=== PATIENT | female | born 1995 | race Caucasian/White ===

== ENCOUNTER → 2017-12-01 14:56 | Outpatient (CLI) | payer OTHER, MEDICAID, SELFPAY ==
[2017-12-01 15:30] LABS: Add Manual Diff / Slide Review NO; Basophils Percent Auto 0.4 % (0-2); Eosinophils Percent Auto 1.4 % (2-4); Hematocrit 32.9 % (36-46); Hemoglobin 11.4 g/dL (12.0-16.0); Lymphocytes Percent Auto 21.9 % (25-40); Mean Corpuscular HGB Conc 34.5 % (30-36); Mean Corpuscular Hemoglobin 31.4 PG (26-34); Monocytes Percent Auto 4.8 % (3-14); Neutrophils Absolute Auto 5100 /uL (3000-5900); Neutrophils Percent Auto 71.5 % (50-75); Platelet Count 260 X10^3/uL (150-400); Red Blood Cell Count 3.62 X10^6/uL (4.0-5.2); Red Cell Distribution Width 11.7 % (11.6-14.8); White Blood Cell Count 7.1 X10^3/uL (4.5-11.0)
[2017-12-01 16:17] LABS: Appearance Urine UA CLEAR; Bilirubin Urine UA NEGATIVE (NEGATIVE); Color Urine UA YELLOW; Glucose Urine UA NEGATIVE (Negative); Ketones Urine UA NEGATIVE (NEGATIVE); Leukocyte Esterase Urine UA NEGATIVE (NEGATIVE); Nitrite Urine UA NEGATIVE (NEGATIVE); Occult Blood Urine UA NEGATIVE (Negative); Protein Urine UA NEGATIVE (Negative); Specific Gravity Urine UA 1.015 (1.000-1.035); Urobilinogen Urine UA 0.2 E.U./dL (0.2); pH Urine UA 7.5 (4.5-8.0)
[2017-12-01 16:20] LABS: Amorphous Sediment Urine 1+; Squamous Epithelial Cell Urine 0-1 /HPF; WBC Urine 0-1/HPF (0-5/HPF)
[2017-12-01 17:14] LABS: HIV 1 and 2 Antibody NEGATIVE (NEGATIVE); Hep C Virus Ab w/Reflex Quant NEGATIVE s/c (NEGATIVE); Hepatitis B Surface Antigen NEGATIVE s/c (NEGATIVE); Rubella Antibody IgG 33.7 IU/mL (>15)
[2017-12-03 14:41] LABS: HSV 2 IGG AB < 0.90 index (< 0.90); HSV1IGG < 0.90 index (< 0.90)
[2017-12-09 09:57] LABS: Rapid Plasma Reagin Non-Reactive
== END ==
PROVIDERS: PCP Family Medicine; Visit Provider Family Medicine
DX: Z34.91 Encounter for supervision of normal pregnancy, unspecified, first trimester (principal)
CPT/HCPCS: 36415; 80055; 86787; 86850; 86900; 86901; 87086

== ENCOUNTER → 2017-12-04 12:39 | Outpatient (CLI) | payer OTHER, MEDICAID, SELFPAY ==
[2017-12-06 03:59] LABS: Urine N gonorrhoeae NOT DETECTED
[2017-12-06 04:03] LABS: Urine Chlamydia NOT DETECTED
== END ==
PROVIDERS: PCP Family Medicine; Visit Provider Family Medicine
DX: Z34.90 Encounter for supervision of normal pregnancy, unspecified, unspecified trimester (principal)
CPT/HCPCS: 87491; 87591

== ENCOUNTER → 2018-01-29 14:44 | Outpatient (CLI) | payer OTHER, MEDICAID, SELFPAY ==
[2018-02-10 10:07] LABS: AFP, Serum 43.5 ng/mL; Calc Gestational Age 18.6; Cigarette Smoker N; Donated Egg NOT GIVEN; Donor Egg Age NOT GIVEN; Estriol, Free 1.14 ng/mL; Inhibin A, Dimeric 309 pg/mL; Maternal Weight 128 lbs; Number of Fetuses 1; Previous Pregnancy Down Syndro NOT GIVEN; hCG, MoM 1.77; hCG, Serum 43.7 IU/mL
== END ==
PROVIDERS: PCP Family Medicine; Visit Provider Family Medicine
DX: Z34.90 Encounter for supervision of normal pregnancy, unspecified, unspecified trimester (principal)
CPT/HCPCS: 36415; 82105; 82677; 84702; 86336

== ENCOUNTER → 2018-02-11 10:20 | Outpatient (CLI) | payer OTHER, MEDICAID, SELFPAY ==
--- NOTE | 2018-02-11 10:22 | DI.US.S_ITS ---
PROCEDURE: US OB >= 14 WEEKS FETUS INDICATIONS: ANATOMY OUTSIDE/PRIOR DATING DATA: Last menstrual period (LMP): 09/21/17. LMP-based estimated date of delivery (SILVESTRE): 06/28/18. First dating scan (date and location): 02/11/18. Estimated date of delivery (SILVESTRE) from first dating scan: 06/29/18. TECHNIQUE: Real-time scanning was performed of the fetus, with image documentation and biometric measurements. Endovaginal scanning: No COMPARISON: None. FINDINGS: General: A single living intrauterine gestation is present. Presentation: Breech. Placenta: Placental position is posterior, without previa. Amniotic fluid index: 15.7 cm, normal range is 5-24 cm. heart rate: 139 beats per minute. Maternal cervical canal: 3.2 cm long. Normal lower limit is 2.5 cm. biometrics: Biparietal diameter: 20 weeks 4 days Head circumference: 20 weeks 0 days Abdominal circumference: 20 weeks 3 days Femur length: 20 weeks 0 days Estimated gestational age from initial scan: not applicable. Composite gestational age from present scan: 20 weeks 2 days Estimated weight and percentile: 339 g; 33rd percentile Measurement variability for biometric dating: +/- 7 days from 14 weeks to 15 weeks 6 days gestation, +/- 10 days from 16 weeks to 21 weeks 6 days gestation, +/- 2 weeks from 22 weeks to 27 weeks 6 days gestation, +/- 3 weeks for 28 weeks gestation or later. weight reference: 4500 g or EFW >90/95% is considered macrosomia or large for gestational age. EFW <10% is small for gestational age. EFW 5% or less is considered intra-uterine growth restriction. Anatomic survey: Neuro: Ventricles are non-dilated at less than 10 mm. Cisterna magna is normal at 3-11 mm. Cerebellum is normal in size and morphology. Nuchal skin fold: Normal at less than 6 mm between 14-21 weeks gestational age. Face: Nose and lips, facial profile are normal. Spine: No evidence for spina bifida. Heart: 4-chambered heart is present, with normal ventricular outflow tracts. Diaphragm: Diaphragm is intact. Stomach: Left-sided stomach is present. Kidneys: No hydronephrosis. Normal is less than 5 mm in 2nd trimester, less than 7 mm in 3rd trimester. Cord: 3-vessel cord has orthotopic insertion. Bladder: Normal in size. Extremities: All 4 extremities identified. IMPRESSION: 1. Single living IUP present with composite gestational age of 20 weeks 2 days. 2. Normal anatomic survey. Dictated by: Ismael PRICE Interpreted: Michelle Martin MD on 02/11/2018 at 11:16 Approved by: Michelle Martin M.D. on 02/11/2018 at 11:55
== END ==
PROVIDERS: PCP Family Medicine; Visit Provider Family Medicine
DX: Z34.02 Encounter for supervision of normal first pregnancy, second trimester (principal); Z3A.20 20 weeks gestation of pregnancy
CPT/HCPCS: 76811

== ENCOUNTER → 2018-05-24 09:55 | Outpatient (CLI) | payer OTHER, MEDICAID, SELFPAY ==
[2018-05-24 11:27] LABS: Add Manual Diff / Slide Review NO; Basophils Percent Auto 0.3 % (0-2); Eosinophils Percent Auto 1.2 % (2-4); Hematocrit 31.7 % (36-46); Hemoglobin 11.4 g/dL (12.0-16.0); Lymphocytes Percent Auto 21.9 % (25-40); Mean Corpuscular HGB Conc 35.8 % (30-36); Mean Corpuscular Volume 92.1 fL (80-100); Monocytes Percent Auto 6.1 % (3-14); Neutrophils Absolute Auto 6200 /uL (3000-5900); Neutrophils Percent Auto 70.5 % (50-75); Platelet Count 215 X10^3/uL (150-400); Red Blood Cell Count 3.44 X10^6/uL (4.0-5.2); Red Cell Distribution Width 12.3 % (11.6-14.8); White Blood Cell Count 8.8 X10^3/uL (4.5-11.0)
[2018-05-24 11:35] LABS: GTT (PREG) 1 Hour PP 50gm Dose 100 mg/dL (76-139)
== END ==
PROVIDERS: PCP Family Medicine; Visit Provider Family Medicine
DX: Z34.92 Encounter for supervision of normal pregnancy, unspecified, second trimester (principal)
CPT/HCPCS: 36415; 82950; 85025

== ENCOUNTER → 2018-06-02 16:30 | Outpatient (CLI) | payer OTHER, MEDICAID, SELFPAY ==
[2018-06-03 14:49] LABS: Strep Grp B PCR POS for Grp B Strep
== END ==
PROVIDERS: PCP Family Medicine; Visit Provider Family Medicine
DX: Z34.83 Encounter for supervision of other normal pregnancy, third trimester (principal)
CPT/HCPCS: 87186; 87653

== ENCOUNTER 2018-07-05 12:08 | Outpatient (CLI) | payer OTHER, MEDICAID, SELFPAY | END 2018-07-05 12:54 | disposition home or self-care (01) | LOC: OB 07-07 13:13 | PROVIDERS: PCP Family Medicine; Visit Provider Family Medicine | DX: O48.0 Post-term pregnancy (principal); Z3A.41 41 weeks gestation of pregnancy | CPT/HCPCS: 59025; G0378; G0379 ==

== ENCOUNTER 2018-07-07 19:02 | Inpatient (IN) | payer OTHER, MEDICAID, SELFPAY ==
--- NOTE | 2018-07-07 19:19 | PM.OBHP.1 ---
OB HPI Date/Time Date of admission: 07/07/18 Date Patient Seen: 07/07/18 Time Patient Seen: 19:55 History of Present Condition Chief complaint: EVAL OF LABOR : 1 Para: 0 Estimated Date of Delivery: 06/28/18 Estimated Gestational Age (weeks): 41 Narrative: Daniela Olivares is a 23 year old female at 41 weeks 2 days here for postdates induction Indications Indication for induction OB: post dates Other reason(s) for admission: Postdates induction History of Present care: initiated at week # (10), number of visits (12) and pounds weight gain (39) Dating criteria: LMP confirmed by 1st trimester US Ultrasounds: normal mid trimester US Obstetrical complications: none Medical complications: none Preadmission Labs Blood type: O (+) positive -: Antibody screen: negative, GBS status: positive, HBsAG: negative, HIV: negative and RPR/VDLR: negative -: Chlamydia screen: not detected and Gonorrhea screen: not detected -: Rubella: immune and Varicella: immune Quad screen: Normal 1 hr GTT: 100 Evaluation Evaluation Baseline heart rate: 120 Variability: Moderate (11-25) monitor accelerations: Present monitor decelerations: Absent Category of Tracing: I Cervical dilation (cm): 1 Cervical effacement (%): 50 station: -1 Meds Home Medications Medication Instructions Recorded Confirmed Type norethindrone-e.estradiol-iron 1 tab PO QDAY #3 pac 04/07/16 Rx [Loestrin Fe 1.5/30 (28-Day)] Allergies Allergy/AdvReac Type Severity Reaction Status Date / Time amoxicillin [AMOXICILLIN] Allergy Severe HIVES Unverified 10/21/17 12:11 Penicillins [PENICILLINS] Allergy Severe HIVES Unverified 10/21/17 12:11 Review of Systems Review of Systems Patient denies signs and symptoms of preeclampsia. She denies leakage of fluid. Good movement. All systems reviewed & are unremarkable except as noted in HPI and below Exam Vital Signs (past 8 hours): Blood pressure 133/94, pulse 96, temperature 97.1? Narrative Exam Narrative: HEENT exam within normal limits. Lungs are clear to auscultation and percussion. Heart is regular rate and rhythm no S3-S4 or murmurs. Abdomen is gravid and nontender. Extremities without edema and nontender. Assessment and Plan (1) 41 weeks gestation of : Current visit: Yes Status: Acute Plan: Plan: 41 week 2 day gestation here for postdates induction. Patient will be given Cytotec and Pitocin in a.m. if not in active labor.
[2018-07-07] MEDS: miSOPROStol 25 MCG TABLET VAG (20:05)
[2018-07-07] MEDS: LACTATED RINGERS 1,000 ML 999 ML IV (21:45)
[2018-07-07 21:53] LABS: Add Manual Diff / Slide Review NO; Basophils Percent Auto 0.1 % (0-2); Eosinophils Percent Auto 0.8 % (2-4); Hematocrit 33.4 % (36-46); Hemoglobin 11.9 g/dL (12.0-16.0); Lymphocytes Percent Auto 23.2 % (25-40); Mean Corpuscular HGB Conc 35.7 % (30-36); Mean Corpuscular Hemoglobin 33.6 PG (26-34); Mean Corpuscular Volume 94.4 fL (80-100); Monocytes Percent Auto 4.9 % (3-14); Neutrophils Absolute Auto 7100 /uL (1500-7000); Platelet Count 215 X10^3/uL (150-400); Red Blood Cell Count 3.54 X10^6/uL (4.0-5.2); Red Cell Distribution Width 13.8 % (11.6-14.8)
[2018-07-07] MEDS: DEXTROSE 5%-LACTATED RINGERS 1,000 ML 100 ML IV (22:43)
[2018-07-07] MEDS: CLINDAMYCIN 900 MG/50 ML PIGGYBACK 50 MG IV (23:40)
[2018-07-07] MEDS: LACTATED RINGERS 1,000 ML 100 ML IV (23:41)
[2018-07-08 04:16] VITALS: BP 133/90
[2018-07-08] MEDS: LACTATED RINGERS 1,000 ML 100 ML IV (07:04)
[2018-07-08] MEDS: CLINDAMYCIN 900 MG/50 ML PIGGYBACK 50 MG IV (07:05)
--- NOTE | 2018-07-08 10:34 | PM.OBPRVD ---
Delivery date: 07/08/18 Intrapartal events: None Induction method: per misoprostol protocol Delivery augmentation: rupture of membranes Delivery monitor: external FHT Route of delivery: Laceration description: Perineal - 1st Degree Delivery repair: chromic Estimated blood loss (mL): 250 Anesthesia type: Epidural Complications: None known Narrative: The patient is a 23-year-old white female one para 0 admitted for postdate is in for induction of labor. Patient received misoprostol cervical ripening and labor ensued. An epidural was placed. The patient made good progress to complete pushed and delivered a live-born female infant with scores of eight at 1 min nine at 5 min in good condition. The placenta delivered spontaneously. The cord had three vessels. The estimated blood loss was 250 cc. There were no cervical or vaginal tears. Patient sustained a first-degree perineal tear which was repaired with two 0 chromic suture. Plan for aftercare: Routine aftercare
[2018-07-08] MEDS: IBUPROFEN 600 MG TABLET PO (21:05)
[2018-07-09 06:40] LABS: Hematocrit 30.7 % (36-46); Hemoglobin 10.8 g/dL (12.0-16.0)
--- NOTE | 2018-07-09 08:54 | P.DS_ITS ---
Discharge Providers Date of admission: 07/07/18 19:02 Primary care physician: Jennifer Paz MD Consults: 07/08/18 11:54 Consult to [employer] Routine Comment: Discharge provider: Stan Robertson MD Discharge Date: 07/09/18 Summary Date Patient Seen: 07/09/18 Time Patient Seen: 08:50 Hospital Course: Patient is a 23-year-old white female one now para one who presented for induction with misoprostol because of postdate is some of 41-,1/2 weeks. Misoprostol was given and the patient went into spontaneous labor. She received an epidural. She made rapid progress to complete and was delivered unexpectedly of a live-born female infant with scores of eight at 1 min nine at 5 min in good condition. Placenta delivered spontaneously. Cord had three vessels. The estimated blood loss was 250 cc. There are no cervical or vaginal tears. There was a small first-degree perineal tear repaired with two 0 chromic suture. Post delivery the patient did well. She remained afebrile stable vital signs and was progressively alimented and ambulated. She was discharged home for follow-up in six weeks by Dr. Jennifer Paz MD Peripartum Data Delivery Method: Natural Vaginal Laceration description: Perineal - 1st Degree Procedures: Spontaneous vaginal delivery Repair of first-degree tear complications: none Discharge Diagnosis (1) 41 weeks gestation of : Status: Acute Status at Discharge Cognitive/behavioral status at discharge: Normal Functional status at discharge: independent ambulation Overall status at discharge: patient is back to baseline Time Spent with Patient Total time spent providing and/or coordinating discharge services: Less than 30 minutes Objective Labs Result Diagrams: 07/09/18 06:12 Labs: Laboratory Results - last 24 hr 07/09/18 06:12 Hgb 10.8 L Hct 30.7 L Discharge Plan Discharge Plan Patient Disposition: Home Discharge Med Rec/Prescriptions Prescriptions: New benzocaine-menthol [Dermoplast (with menthol)] 20-0.5 % Aerosol 1 spray Topical Q1HR PRN (Reason: perineal pain) Qty: 78 RF: 0 oxycodone-acetaminophen 5-325 mg Tablet 1 tab PO Q4HR Qty: 20 RF: 0 ibuprofen 600 mg Tablet 600 mg PO Q6HR PRN (Reason: Pain, Mild (1-3)) Qty: 20 RF: 0 docusate sodium 250 mg Capsule 250 mg PO DAILY Qty: 20 RF: 0 lanolin [Tsm-B-Eniujj] Cream 1 applic Topical PRN PRN (Reason: Tenderness) Qty: 1 RF: 0 Continue Iron (ferrous sulfate) 325 mg tablet 325 mg PO DAILY RF: 0 1 tab tablet 1 tab PO DAILY RF: 0 Provider Discharge Instructions Diet: Diet as Tolerated Activity: Up ad federico Skin/Wound/Dressing Care Report to your healthcare provider any signs of infection, such as:: chills, fever, increased pain, unusual drainage and unusual redness Discharge Data Primary Care Provider: Jennifer Paz Attending Provider: Ayah Paez Admit Date/Time: 07/07/18 19:02
[2018-07-09] MEDS: IBUPROFEN 600 MG TABLET PO (14:23)
== END 2018-07-09 15:10 | disposition home or self-care (01) | DRG 560 ==
PROVIDERS: Admitting Provider Specialist; PCP Family Medicine; Visit Provider Specialist
DX: O48.0 Post-term pregnancy (principal); O70.0 First degree perineal laceration during delivery; Z3A.41 41 weeks gestation of pregnancy; Z37.0 Single live birth
CPT/HCPCS: 01967; 59050; 59409; 84112; 85014; 85018; 85025; 86850; 86900; 86901; G0379; J3010; J7121

== ENCOUNTER → 2020-04-18 14:57 | Outpatient (CLI) | payer OTHER, MEDICAID, SELFPAY ==
[2020-04-18 16:30] LABS: Add Manual Diff / Slide Review NO; Basophils Absolute Auto 0 /uL (0-100); Basophils Percent Auto 0.3 % (0-2); Eosinophils Absolute Auto 100 /uL (0-450); Eosinophils Percent Auto 1.5 % (2-4); Hematocrit 33.8 % (36-46); Hemoglobin 11.7 g/dL (12.0-16.0); Lymphocytes Absolute Auto 2000 /uL (1100-4500); Lymphocytes Percent Auto 25.6 % (25-40); Mean Corpuscular HGB Conc 34.6 % (30-36); Mean Corpuscular Hemoglobin 31.5 PG (26-34); Mean Corpuscular Volume 91.1 fL (80-100); Monocytes Absolute Auto 400 /uL (0-900); Monocytes Percent Auto 5.3 % (3-14); Neutrophils Absolute Auto 5400 /uL (1500-7000); Neutrophils Percent Auto 67.3 % (50-75); Platelet Count 266 X10^3/uL (150-400); Red Blood Cell Count 3.71 X10^6/uL (4.0-5.2); Red Cell Distribution Width 12.3 % (11.6-14.8); White Blood Cell Count 7.9 X10^3/uL (4.5-11.0)
[2020-04-18 17:27] LABS: Appearance Urine UA CLEAR; Bilirubin Urine UA NEGATIVE (NEGATIVE); Color Urine UA YELLOW; Glucose Urine UA NEGATIVE (Negative); Ketones Urine UA NEGATIVE (NEGATIVE); Leukocyte Esterase Urine UA TRACE (NEGATIVE); Nitrite Urine UA NEGATIVE (Negative); Occult Blood Urine UA NEGATIVE (Negative); Protein Urine UA NEGATIVE (Negative); Specific Gravity Urine UA <=1.005 (1.000-1.035); Urobilinogen Urine UA 0.2 E.U./dL (0.2)
[2020-04-18 17:31] LABS: Bacteria Urine None Seen; RBC Urine None Seen (0-5/HPF); pH Urine UA 6.5 (4.5-8.0)
[2020-04-18 17:37] LABS: Squamous Epithelial Cell Urine 0-1 /HPF (0-5/HPF); WBC Urine 0-1/HPF (0-5/HPF)
[2020-04-18 18:13] LABS: Hepatitis B Surface Antigen NEGATIVE s/c (NEGATIVE); Rubella Antibody IgG 25.9 IU/mL (>15)
[2020-04-18 18:37] LABS: HIV 1 & 2 Ab/Ag 4th Gen Combo NEGATIVE (NEGATIVE); Hep C Virus Ab w/Reflex Quant NEGATIVE s/c (NEGATIVE)
[2020-04-19 04:36] LABS: RPR Screen Non Reactive (Non Reactive)
[2020-04-19 08:36] LABS: Varicella IgG Antibody 767 index (Immune >165)
== END ==
PROVIDERS: PCP Family Medicine; Referring Provider Family Medicine; Visit Provider Family Medicine
DX: Z34.81 Encounter for supervision of other normal pregnancy, first trimester (principal)
CPT/HCPCS: 36415; 80055; 81003; 81015; 86787; 86803; 86850; 86900; 86901; 87086; 87389

== ENCOUNTER → 2020-06-15 14:58 | Outpatient (CLI) | payer OTHER, MEDICAID, SELFPAY | PROVIDERS: PCP Family Medicine; Visit Provider Family Medicine | DX: N89.8 Other specified noninflammatory disorders of vagina (principal) | CPT/HCPCS: 87070; 87077; 87205; 87210 ==

== ENCOUNTER → 2020-06-25 14:15 | Outpatient (CLI) | payer OTHER, MEDICAID, SELFPAY ==
--- NOTE | 2020-06-25 14:17 | DI.US.S_ITS ---
PROCEDURE: US OB >= 14 WEEKS FETUS INDICATIONS: 20 week anatomy scan OUTSIDE/PRIOR DATING DATA: Last menstrual period (LMP): 02/07/20. LMP-based estimated date of delivery (SILVESTRE): 11/13/20 First dating scan (date and location): 06/25/20 . Estimated date of delivery (SILVESTRE) from first dating scan: 11/13/20 . TECHNIQUE: Real-time scanning was performed of the fetus, with image documentation and biometric measurements. Endovaginal scanning: Not performed COMPARISON: [facility], OB >= 14 WEEKS FETUS, 02/11/2018, 10:31. FINDINGS: General: A single living intrauterine gestation is present. Presentation: Vertex. Placenta: Placental position is anterior , without previa. Amniotic fluid index: 14.3 cm, normal range is 5-24 cm. heart rate: 140 beats per minute. Maternal cervical canal: 4.4 cm long. Normal lower limit is 2.5 cm. biometrics: Biparietal diameter: 4.6 cm, 19 weeks 6 days Head circumference: 17.4 cm, 20 weeks 0 days Abdominal circumference: 13.7 cm, 19 weeks 1 day Femur length: 3.3 cm, 20 weeks 2 days Estimated gestational age from initial scan: 19 weeks 6 days Composite gestational age from present scan: 19 weeks 6 days Estimated weight and percentile: 308 g, 37th percentile Measurement variability for biometric dating: +/- 7 days from 14 weeks to 15 weeks 6 days gestation, +/- 10 days from 16 weeks to 21 weeks 6 days gestation, +/- 2 weeks from 22 weeks to 27 weeks 6 days gestation, +/- 3 weeks for 28 weeks gestation or later. weight reference: 4500 g or EFW >90/95% is considered macrosomia or large for gestational age. EFW <10% is small for gestational age. EFW 5% or less is considered intra-uterine growth restriction. Anatomic survey: Neuro: Ventricles are non-dilated at less than 10 mm. Cisterna magna is normal at 3-11 mm. Cerebellum is normal in size and morphology. Nuchal skin fold: Normal at less than 6 mm between 14-21 weeks gestational age. Face: Nose and lips, facial profile are normal. Spine: No evidence for spina bifida. Heart: 4-chambered heart is present, with normal ventricular outflow tracts. Diaphragm: Diaphragm is intact. Stomach: Left-sided stomach is present. Kidneys: No hydronephrosis. Normal is less than 5 mm in 2nd trimester, less than 7 mm in 3rd trimester. Cord: 3-vessel cord has orthotopic insertion. Bladder: Normal in size. Extremities: All 4 extremities identified. IMPRESSION: Single living intrauterine fetus in vertex presentation. Expected interval growth as above Normal anatomic survey. Dictated by: Attila Bronson M.D. on 06/26/2020 at 11:30 Approved by: Attila Bronson M.D. on 06/26/2020 at 11:37
== END ==
PROVIDERS: PCP Family Medicine; Referring Provider Family Medicine; Visit Provider Family Medicine
DX: Z36.89 Encounter for other specified antenatal screening (principal); Z3A.19 19 weeks gestation of pregnancy
CPT/HCPCS: 76811

== ENCOUNTER → 2020-08-14 14:32 | Outpatient (CLI) | payer OTHER, MEDICAID, SELFPAY ==
[2020-08-14 16:29] LABS: Add Manual Diff / Slide Review NO; Basophils Absolute Auto 0 /uL (0-100); Basophils Percent Auto 0.1 % (0-2); Eosinophils Absolute Auto 100 /uL (0-450); Eosinophils Percent Auto 1.3 % (2-4); Hematocrit 32.1 % (36-46); Hemoglobin 11.2 g/dL (12.0-16.0); Lymphocytes Absolute Auto 1900 /uL (1100-4500); Lymphocytes Percent Auto 20.3 % (25-40); Mean Corpuscular HGB Conc 34.9 % (30-36); Mean Corpuscular Hemoglobin 32.4 PG (26-34); Mean Corpuscular Volume 92.8 fL (80-100); Monocytes Absolute Auto 500 /uL (0-900); Monocytes Percent Auto 5.2 % (3-14); Neutrophils Absolute Auto 6700 /uL (1500-7000); Neutrophils Percent Auto 73.1 % (50-75); Platelet Count 210 X10^3/uL (150-400); Red Blood Cell Count 3.46 X10^6/uL (4.0-5.2); Red Cell Distribution Width 12.4 % (11.6-14.8); White Blood Cell Count 9.2 X10^3/uL (4.5-11.0)
[2020-08-14 16:43] LABS: GTT (PREG) 1 Hour PP 50gm Dose 103 mg/dL (76-139)
== END ==
PROVIDERS: PCP Family Medicine; Referring Provider Family Medicine; Visit Provider Family Medicine
DX: Z34.90 Encounter for supervision of normal pregnancy, unspecified, unspecified trimester (principal)
CPT/HCPCS: 36415; 82950; 85025

== ENCOUNTER → 2020-08-28 18:43 | Outpatient (ROUT) | payer OTHER, MEDICAID, SELFPAY ==
[2020-08-28 20:26] LABS: Urine N gonorrhoeae NOT DETECTED
[2020-08-28 20:39] LABS: Urine Chlamydia NOT DETECTED
== END ==
PROVIDERS: PCP Family Medicine; Visit Provider Family Medicine
DX: Z34.90 Encounter for supervision of normal pregnancy, unspecified, unspecified trimester (principal)
CPT/HCPCS: 87491; 87591

== ENCOUNTER → 2020-10-09 11:57 | Outpatient (CLI) | payer OTHER, MEDICAID, SELFPAY ==
[2020-10-10 12:36] LABS: Strep Grp B PCR NEG for Grp B Strep
== END ==
PROVIDERS: PCP Family Medicine; Visit Provider Family Medicine
DX: Z34.90 Encounter for supervision of normal pregnancy, unspecified, unspecified trimester (principal); Z3A.35 35 weeks gestation of pregnancy
CPT/HCPCS: 87653

== ENCOUNTER 2020-11-21 16:45 | Outpatient (CLI) | payer OTHER, MEDICAID, SELFPAY ==
--- NOTE | 2020-11-21 16:55 | DI.US.S_ITS ---
PROCEDURE: US OB BIOPHYSICAL PROFILE INDICATIONS: post-dates OUTSIDE/PRIOR DATING DATA: Last menstrual period (LMP): 02/06/2029 . LMP-based estimated date of delivery (SILVESTRE): 11/13/2020 . First dating scan (date and location): 06/25/2020, [facility] . Estimated date of delivery (SILVESTRE) from first dating scan: 11/13/2020 . TECHNIQUE: Real-time scanning was performed of the fetus for biophysical profile, with image documentation. Color and pulse Doppler interrogation was also performed of the umbilical artery near its insertion into the placenta. Endovaginal scanning: Not performed COMPARISON: None. FINDINGS: General: A single living intrauterine gestation is present. Presentation: Vertex. Placenta: Placental position is anterior , without previa. Amniotic fluid index: 9 cm, normal range is 5-24 cm. heart rate: 139 beats per minute. Maternal cervical canal: Not visualized cm long. Normal lower limit is 2.5 cm. EGA by initial ultrasound: 41 week 1 day gestation Biophysical profile: Tone: 2 points. Movement: 2 points. Respiration: 2 points. Largest pocket of fluid: 2 points. IMPRESSION: Single live intrauterine consistent with 41 week 1 day gestation Biophysical profile score 8/8 Dictated by: Manuel Sosa M.D. on 11/21/2020 at 17:12 Approved by: Manuel Sosa M.D. on 11/21/2020 at 17:19
--- NOTE | 2020-11-21 17:33 | P.TNLD_ITS ---
Visit Information Visit Information Date of evaluation: 11/21/20 Primary OB Provider: Jennifer Paz Reason for Evaluation: Yes non-stress test non-stress test reason: other (post- dates) Comments/Additional reasons for admission: 25yo at 41w1d here for post- dates [facility] Medical History Anemia (~2011) Anxiety (~2008) Chlamydia (~2011) (spontaneous vaginal delivery) (~07/08/18) UTI (urinary tract infection) Yeast infection (~2017) Family History Mother Bipolar 1 disorder ADHD Depression Anxiety Epilepsy Ovarian cyst Father No problems noted. Grandmother Mental health problem Schizophrenia Grandfather Substance abuse Grandmother No problems noted. Grandfather Lymphoma Social History (Updated 04/09/20 @ 08:38 by Kelsey Rene RN) marital status: unmarried,living together number of children: 1 household members: significant other, children and other (with extended Family) pets and animals: No education level: high school (Did not Graduate yet!) occupational status: employed ([employer] : Full-Time) current occupational exposures/hazards: Yes special radha needs: No Smoking Status: Former smoker (Quit X 1 year ago ) Tobacco: How many years used: 3 Smokeless tobacco user: dissolvable tobacco second hand exposure: No (but other family members in the shared home w/extended family do smoke) alcohol intake: former (pre- : X 2 drinks at a time - on occasion) substance use type: does not use Evaluation Evaluation Baseline heart rate: 130 Variability: Moderate (11-25) monitor accelerations: Present Monitor Decelerations: Absent Cervical dilation (cm): 3 Cervical effacement (%): 75 station: 0 Diagnosis, Plan/Disposition Final Diagnosis (1) 41 weeks gestation of : Status: Acute Plan/Disposition Plan: 25yo at 41w1d here for post-dates IOL. Reactive NST. BPP 02/17. Plan for IOL on 11/23 as scheduled. OB Disposition: home
== END 2020-11-21 17:30 | disposition home or self-care (01) ==
LOC: LABOR 16:48 → OB 11-22 10:39
PROVIDERS: PCP Family Medicine; Referring Provider Family Medicine; Visit Provider Family Medicine
DX: O48.0 Post-term pregnancy (principal); Z3A.41 41 weeks gestation of pregnancy
CPT/HCPCS: 59025; 59050; 76819; G0378; G0379

== ENCOUNTER 2020-11-23 07:53 | Inpatient (IN) | payer OTHER, MEDICAID, SELFPAY ==
[2020-11-23 08:24] LABS: Add Manual Diff / Slide Review NO; Basophils Absolute Auto 0 /uL (0-100); Basophils Percent Auto 0.4 % (0-2); Eosinophils Absolute Auto 100 /uL (0-450); Hematocrit 36.9 % (36-46); Hemoglobin 12.5 g/dL (12.0-16.0); Lymphocytes Absolute Auto 2000 /uL (1100-4500); Lymphocytes Percent Auto 22.1 % (25-40); Mean Corpuscular HGB Conc 33.9 % (30-36); Mean Corpuscular Hemoglobin 31.8 PG (26-34); Mean Corpuscular Volume 93.6 fL (80-100); Monocytes Absolute Auto 300 /uL (0-900); Monocytes Percent Auto 3.7 % (3-14); Neutrophils Absolute Auto 6700 /uL (1500-7000); Neutrophils Percent Auto 72.8 % (50-75); Platelet Count 222 X10^3/uL (150-400); Red Blood Cell Count 3.94 X10^6/uL (4.0-5.2); Red Cell Distribution Width 12.3 % (11.6-14.8); White Blood Cell Count 9.1 X10^3/uL (4.5-11.0)
[2020-11-23] MEDS: LACTATED RINGERS 1,000 ML 100 ML IV ×3 (08:29→11:39)
[2020-11-23] MEDS: OXYTOCIN PREMIX 30 UNIT/500 ML PLAST..BAG IV (08:29)
[2020-11-23 08:39] LABS: COVID19 -Nasal RAPID Negative (Negative)
[2020-11-23 08:42] VITALS: BP 108/76
[2020-11-23] MEDS: FENT 2MCG/ML BUPIV 0.125% EPI 200 MCG/100 ML PLAST..BAG 10 MCG EPIDURAL (11:00)
--- NOTE | 2020-11-23 14:52 | PM.OBHP.1 ---
OB HPI Date/Time Date of admission: 11/23/20 Date Patient Seen: 11/23/20 Time Patient Seen: 08:15 History of Present Condition Chief complaint: INDUCTION : 2 Para: 1 Estimated Date of Delivery: 11/13/20 Estimated Gestational Age (weeks): 41w3d Narrative: Daniela Olivares is a 25 year old at 41w3d here for post-dates induction. She is feeling her baby move regularly. No LOF, vaginal bleeding, contractions. There have been no complications with her . Indications Indication for induction OB: post dates History of Present care: good care, initiated at week # (10) and pounds weight gain (38) Dating criteria: LMP confirmed by 1st trimester US Ultrasounds: normal 1st trimester US and normal mid trimester US Obstetrical complications: none Medical complications: none Preadmission Labs Blood type: O (+) positive -: Antibody screen: negative, GBS status: negative, HBsAG: negative, HIV: negative and RPR/VDLR: negative -: Chlamydia screen: not detected and Gonorrhea screen: not detected -: Rubella: immune and Varicella: immune HCT: 32.1 HCAB: negative Quad screen: Normal Urine: Negative 1 hr GTT: 103 Prior (ies) History: 07/08/18 - at 41w3d, female 7lb5oz Evaluation Evaluation Baseline heart rate: 140 Variability: Moderate (11-25) monitor accelerations: Present Monitor Decelerations: Absent Status: Category l Cervical dilation (cm): 3 Cervical effacement (%): 80 station: +1 Laboratory results: Laboratory Tests 11/23/20 11/23/20 11/23/20 08:05 08:05 08:05 WBC 9.1 RBC 3.94 L Hgb 12.5 Hct 36.9 MCV 93.6 MCH 31.8 MCHC 33.9 RDW 12.3 Plt Count 222 Neut % (Auto) 72.8 Lymph % (Auto) 22.1 L [place] % (Auto) 3.7 Eos % (Auto) 1.0 L Baso % (Auto) 0.4 Neut # (Auto) 6700 Lymph # (Auto) 2000 [place] # (Auto) 300 Eos # (Auto) 100 Baso # (Auto) 0 SARS-CoV-2 (PCR) Negative Blood Type O Positive Antibody Screen Negative Comments: After informed consent, AROM performed without production of significant fluid due to low descent of head [facility] Medical History Anemia (~2011) Anxiety (~2008) Chlamydia (~2011) (spontaneous vaginal delivery) (~07/08/18) UTI (urinary tract infection) Yeast infection (~2017) Family History Mother Bipolar 1 disorder ADHD Depression Anxiety Epilepsy Ovarian cyst Father No problems noted. Grandmother Mental health problem Schizophrenia Grandfather Substance abuse Grandmother No problems noted. Grandfather Lymphoma Social History (Updated 04/09/20 @ 08:38 by Kelsey Rene RN) marital status: unmarried,living together number of children: 1 household members: significant other, children and other (with extended Family) pets and animals: No education level: high school (Did not Graduate yet!) occupational status: employed ([employer] : Full-Time) current occupational exposures/hazards: Yes special radha needs: No Smoking Status: Former smoker Tobacco: How many years used: 3 Smokeless tobacco user: dissolvable tobacco second hand exposure: No (but other family members in the shared home w/extended family do smoke) alcohol intake: former (pre- : X 2 drinks at a time - on occasion) substance use type: does not use Meds Home Medications and Allergies Home Medications Medication Instructions Recorded Confirmed Type prenat.vits,raciel,zlg-mwjo-njyyb 1 tab PO DAILY 04/09/20 11/23/20 History Allergies Allergy/AdvReac Type Severity Reaction Status Date / Time amoxicillin [AMOXICILLIN] Allergy Severe HIVES Verified 07/07/18 23:41 Penicillins [PENICILLINS] Allergy Severe HIVES Verified 07/07/18 23:41 Exam Vital Signs (past 8 hours): - 11/23/20 08:42 Blood Pressure 108/76 Const General: cooperative, healthy appearing and comfortable Orientation: alert, awake and oriented x3 Resp Effort & Inspection: normal respiratory effort Auscultation: clear to auscultation bilaterally Cardio Rate: regular rate Rhythm: regular rhythm Heart Sounds: S1 normal, S2 normal and no murmurs GI Inspection: non-distended Palpation: soft and No tender Other: gravid Presentation: vertex Extrem General: no clubbing, cyanosis or edema Objective Labs Result Diagrams: 11/23/20 08:05 Labs: Laboratory Results - last 24 hr 11/23/20 11/23/20 11/23/20 08:05 08:05 08:05 WBC 9.1 RBC 3.94 L Hgb 12.5 Hct 36.9 MCV 93.6 MCH 31.8 MCHC 33.9 RDW 12.3 Plt Count 222 Neut % (Auto) 72.8 Lymph % (Auto) 22.1 L [place] % (Auto) 3.7 Eos % (Auto) 1.0 L Baso % (Auto) 0.4 Neut # (Auto) 6700 Lymph # (Auto) 2000 [place] # (Auto) 300 Eos # (Auto) 100 Baso # (Auto) 0 SARS-CoV-2 (PCR) Negative Blood Type O Positive Antibody Screen Negative Assessment and Plan Assessment and Plan Assessment and Plan narrative: 25yo at 41w3d here for post-dates IOL. No complications with . GBS negative, Rh positive. AROM performed. - Expectant management, anticipate - Epidural for pain control when desired - Start pitocin, titrate as tolerated - FHT reassuring - GBS negative, no abx prophylaxis indicated
[2020-11-23] MEDS: miSOPROStoL 200 MCG TABLET 1000 MCG PR (15:16)
--- NOTE | 2020-11-23 15:31 | P.PCNOB_ITS ---
Labor & Delivery Delivery date: 11/23/20 Intrapartal Events: None Induction method: per pitocin protocol Delivery augmentation: rupture of membranes Delivery monitor: external FHT Route of delivery: Episiotomy description: None L&D Laceration Description: Perineal - 1st Degree Delivery repair: chromic (3-O) Estimated blood loss (mL): 300 Anesthesia Type: Epidural Complications: None Narrative: PROCEDURE: at 41w3d presented for post-dates IOL and was admitted to Labor and Delivery. AROM was performed, and the pt was started on pitocin. The patient progressed through the 1st stage over 3 hours. Pain was controlled with an epidural. The patient progressed through the 2nd stage over 1 hours and delivered a viable male with APGARs 9/9 at 15:04 via without complications. The cord was clamped and cut after it stopped pulsating. The perineum and vagina were inspected with 1st degree perineal laceration repaired with 3-O Chromic. After the 3rd stage, the pt was noted to have brisk vaginal bleeding with uterine atony. Her pitocin was bolused, and bimanual massage was completed with improvement in tone. Cytotec was administered as well. The pt then had good uterine tone and appropriate bleeding. PREPROCEDURE DIAGNOSIS: Intrauterine at 41w3d GBS negative RH positive POSTPROCEDURE DIAGNOSIS: Intrauterine at 41w3d, delivered Same as preprocedure ROM APPEARANCE: Clear Garner Baby 1: Infant gender: Male Presentation: vertex Position: Right Occiput Transverse Placenta delivery description: Spontaneous Cord Vessel Description: 3 Vessels and Nuchal Cord (x1, reduced at perinum) score (1 min): 9 score (5 min): 9 weight: 8 lb 14 oz Plan for aftercare: Routine care
[2020-11-23] MEDS: CEFAZOLIN 1 GM VIAL 2 GM IV (17:35)
[2020-11-23] MEDS: IBUPROFEN 600 MG TABLET PO (21:05)
[2020-11-24] MEDS: IBUPROFEN 600 MG TABLET PO ×2 (03:03→10:45)
[2020-11-24] MEDS: DOCUSATE 100 MG CAPSULE PO (08:28)
[2020-11-24] MEDS: PRENATAL VIT,CALC/IRON/FOLIC 1 TABLET 1 TAB PO (08:28)
--- NOTE | 2020-11-24 08:28 | PM.OBDS.1 ---
Discharge Providers Provider Date of admission: 11/23/20 07:53 Discharge Date: 11/24/20 Primary care physician: Jennifer Paz MD Consults: 11/24/20 16:07 Consult to Health Science Instructor Routine Comment: Discharge provider: Jennifer Paz MD Summary Hospital Course Date Patient Seen: 11/24/20 Time Patient Seen: 08:28 Diagnoses: 41w3d gestation Spontaneous vaginal delivery 1st degree perineal laceration Rh positive GBS negative Hospital Course: The patient presents for postdates induction of labor. AROM was performed and she was started on Pitocin. She had an epidural for pain control. She progressed to complete and had spontaneous vaginal delivery of a viable baby boy at 3:04 p.m. on 11/23/2020. A first-degree perineal laceration was then repaired. Initially brisk vaginal bleeding was controlled with bimanual massage and cytotec. , there were no complications. At the time of discharge she was voiding, ambulating, passing flatus without difficulty. Her lochia was decreasing appropriately. Her pain was adequately controlled. She is resting good latch. She will follow-up with in 6 weeks for her check. She is undecided regarding contraception. Peripartum Data Delivery Method: Natural Vaginal Laceration Description: Perineal - 1st Degree Episiotomy description: None Procedures: Spontaneous vaginal delivery complications: none [place] 1: Gender: Male Disposition of : home Status at Discharge Cognitive/behavioral status at discharge: oriented Functional status at discharge: independent ambulation Overall status at discharge: patient is progressing back to baseline Time Spent with Patient Time attestation: Total time spent providing and/or coordinating discharge services: Objective Labs Result Diagrams: 11/23/20 08:05 Labs: Laboratory Results - last 24 hr 11/23/20 11/23/20 08:05 08:05 SARS-CoV-2 (PCR) Negative Blood Type O Positive Antibody Screen Negative Exam Narrative Exam Narrative: Gen: NAD, sitting comfortably in bed, appears well CV: RRR, no murmurs Resp: clear to auscultation bilaterally Abd: soft, appropriately tender, fundus firm and below the umbilicus, nondistended Ext: no edema Discharge Plan Discharge Plan Patient Disposition: Home Discharge orders & Medications Prescriptions: New acetaminophen 325 mg Tablet 650 mg PO Q6HR PRN (Reason: Pain, Mild (1-3)) Qty: 30 RF: 0 docusate sodium [DOK] 100 mg Capsule 100 mg PO DAILY Qty: 30 RF: 0 ibuprofen 600 mg Tablet 600 mg PO Q6HR PRN (Reason: Pain, Mild (1-3)) Qty: 30 RF: 0 Continued prenat.vits,raciel,bke-baio-[id number] Tablet 1 tab PO DAILY RF: 0 Follow up/Referrals: Jennifer Paz MD [Primary Care Provider] - 6 Weeks Diet/Activity/Treatments Diet: Diet as Tolerated and Regular Skin/Wound/Dressing Care Report to your healthcare provider any signs of infection, such as:: chills, fever, increased pain and unusual drainage Visit Report/Discharge Packet Instructions: DI for Labor and Delivery, Vaginal Visit Report Forms: Patient Portal/API, Stroke Signs & Symptoms Discharge Data Primary Care Provider: Jennifer Paz
[2020-11-24 14:29] VITALS: BP 98/63; PULSE 76; RESP 17; TEMP 36.7
== END 2020-11-24 15:05 | disposition home or self-care (01) | DRG 560 ==
PROVIDERS: Admitting Provider Family Medicine; PCP Family Medicine; Referring Provider Family Medicine; Visit Provider Family Medicine
DX: O48.0 Post-term pregnancy (principal); Z3A.41 41 weeks gestation of pregnancy; Z37.0 Single live birth; O70.0 First degree perineal laceration during delivery; Z20.822 Contact with and (suspected) exposure to COVID-19
CPT/HCPCS: 01967; 36415; 59050; 59409; 85025; 86850; 86900; 86901; 87635; C9803; G0379; J0690; J2590; S0191

== ENCOUNTER → 2024-07-12 11:11 | Outpatient (CLI) | payer OTHER, SELFPAY ==
[2024-07-12 13:10] LABS: Urine N gonorrhoeae NOT DETECTED
[2024-07-12 13:15] LABS: Urine Chlamydia NOT DETECTED
== END ==
PROVIDERS: PCP Family Medicine; Visit Provider Physician Assistant
DX: N89.8 Other specified noninflammatory disorders of vagina (principal)
CPT/HCPCS: 87210; 87491; 87591

== ENCOUNTER → 2025-04-05 10:12 | Outpatient (CLI) | payer OTHER, SELFPAY ==
[2025-04-11 21:10] LABS: Urine N gonorrhoeae NOT DETECTED
[2025-04-11 21:14] LABS: Urine Chlamydia NOT DETECTED
== END ==
LOC: LAB 10:15
PROVIDERS: PCP Family Medicine; Visit Provider Obstetrics & Gynecology
DX: Z3A.09 9 weeks gestation of pregnancy (principal); Z34.80 Encounter for supervision of other normal pregnancy, unspecified trimester
CPT/HCPCS: 87491; 87591

== ENCOUNTER → 2025-05-09 10:03 | Outpatient (CLI) | payer OTHER, SELFPAY ==
[2025-05-09 11:01] LABS: Add Manual Diff / Slide Review NO; Hematocrit 37.4 % (36-46); Hemoglobin 12.8 g/dL (12.0-16.0); Lymphocytes Absolute Auto 1300 /uL (1100-4500); Mean Corpuscular HGB Conc 34.3 % (30-36); Mean Corpuscular Hemoglobin 30.5 PG (26-34); Mean Corpuscular Volume 88.9 fL (80-100); Platelet Count 267 X10^3/uL (150-400)
[2025-05-09 11:29] LABS: HEMOLYSIS < 15 (0-50); Iron 167 ug/dL (37-170)
[2025-05-09 11:42] LABS: Percent Iron Saturation 36 % (15-50); Total Iron Binding Capacity 461 ug/dL (265-497); Transferrin 432 mg/dL (206-381)
[2025-05-09 12:05] LABS: Ferritin 15 ng/mL (6-137)
[2025-05-09 15:27] LABS: Hepatitis B Surface Antigen NEGATIVE s/c (NEGATIVE)
[2025-05-09 15:35] LABS: HIV 1 & 2 Ab/Ag 4th Gen Combo NEGATIVE (NEGATIVE); Hep C Virus Ab w/Reflex Quant NEGATIVE s/c (NEGATIVE)
== END ==
PROVIDERS: PCP Family Medicine; Referring Provider Family Medicine; Visit Provider Obstetrics & Gynecology
DX: Z34.90 Encounter for supervision of normal pregnancy, unspecified, unspecified trimester (principal); Z86.2 Personal history of diseases of the blood and blood-forming organs and certain disorders involving the immune mechanism
CPT/HCPCS: 36415; 80055; 82728; 83540; 83550; 86787; 86803; 86850; 86900; 86901; 87389

== ENCOUNTER → 2025-06-06 16:37 | Outpatient (CLI) | payer OTHER, SELFPAY | PROVIDERS: PCP Family Medicine; Visit Provider Obstetrics & Gynecology | DX: R10.20 Pelvic and perineal pain unspecified side (principal) | CPT/HCPCS: 87086 ==

== ENCOUNTER → 2025-06-23 08:27 | Outpatient (CLI) | payer OTHER, SELFPAY ==
--- NOTE | 2025-06-23 08:29 | DI.US.S_ITS ---
PROCEDURE: US OB >= 14 WEEKS FETUS INDICATIONS: 20 weeks anatomy OUTSIDE/PRIOR DATING DATA: Last menstrual period (LMP): 02/03/2025 LMP-based estimated date of delivery (SILVESTRE): 11/10/2025. First dating scan (date and location): 06/23/2025. Estimated date of delivery (SILVESTRE) from first dating scan: 11/13/2025. TECHNIQUE: Real-time scanning was performed of the fetus, with image documentation and biometric measurements. Endovaginal scanning: No COMPARISON: [facility], OB >= 14 WEEKS FETUS, 06/25/2020, 14:28. FINDINGS: General: A single living intrauterine gestation is present. Presentation: Breech. Placenta: Placental position is anterior , without previa. Amniotic fluid index: 15 cm, normal range is 5-24 cm. Single deepest vertical pocket is 5.1 cm. heart rate: 143 beats per minute. Maternal cervical canal: 3.3 cm long. Normal lower limit is 2.5 cm. biometrics: Biparietal diameter: 19 weeks 2 days Head circumference: 19 weeks 4 days Abdominal circumference: 20 weeks Femur length: 19 weeks 4 days Clinically estimated gestational age: 20 weeks Composite gestational age from present scan: 19 weeks 4 days Estimated weight and percentile: Greater 10 g; 31st percentile. Anatomic survey: Neuro: Ventricles are non-dilated at less than 10 mm. Cisterna magna is normal at 3-11 mm. Cerebellum is normal in size and morphology. Nuchal skin fold: Normal at less than 6 mm between 14-21 weeks gestational age. Face: Nose and lips, facial profile are normal. Spine: No evidence for spina bifida. Heart: 4-chambered heart is present, with normal ventricular outflow tracts. Diaphragm: Diaphragm is intact. Stomach: Left-sided stomach is present. Kidneys: No hydronephrosis. Normal is less than 5 mm in 2nd trimester, less than 7 mm in 3rd trimester. Cord: 3-vessel cord has orthotopic insertion. Bladder: Normal in size. Extremities: All 4 extremities identified. IMPRESSION: 1. Single living IUP with mean composite gestational age of 19 weeks 4 days corresponding to ultrasound SILVESTRE of 11/13/2025 which is concordant with provided LMP. 2. Normal anatomic survey We strive to produce accurate, complete, and clear reports of imaging services. To assist us in improving patient care, this report was composed using standard report templates and voice recognition software. Therefore, it may contain abnormal punctuation, insertions and/or omissions. Occasional wrong-word or sound-alike substitutions may occur. Though we review the report and make efforts to correct it, we do recommend that the report be read carefully in proper context to recognize any text inaccuracies. Dictated by: Ismael PRICE Interpreted: Ventura Coronado MD on 06/23/2025 at 10:29 Transcribed by: JUSTIN on 06/23/2025 at 10:32 Approved by: Ventura Coronado M.D. on 06/29/2025 at 16:09
== END ==
LOC: US 08:28
PROVIDERS: PCP Family Medicine; Referring Provider Obstetrics & Gynecology; Visit Provider Obstetrics & Gynecology
DX: Z36.0 Encounter for antenatal screening for chromosomal anomalies (principal); Z3A.19 19 weeks gestation of pregnancy
CPT/HCPCS: 76811